=== PATIENT | male | born 1985 | race African-American/Black ===

== ENCOUNTER 2018-08-17 09:43 | Emergency (ER) | payer OTHER ==
[~2018-08-17] VITALS: Ht 190.5 cm; Wt 132.6 kg
[~2018-08-17 09:43] MED LIST: AMLO10TA PO; LISI10TA11 PO; METO25TA14 PO; RISP2TAB29 PO; SULF1TAB12 PO; TOPI50TA PO; TRAZ100T99 PO
--- NOTE | 2018-08-17 09:51 | NUR ---
PT AMBULATES TO BED 2
[2018-08-17 09:53] VITALS: BP 151/105
--- NOTE | 2018-08-17 09:58 | NUR ---
PT BIB MOTHER DUE TO FACIAL SWELLING AND PAIN X LAST NOC; pT UNDERGONE SURGERY LAST MONTH TO REMOVE KELOID AND ARTIFICIAL SKIN WAS PLACED ON PT'S FACE AT [place]; 4 DAYS AGO SAID ARTIFICIAL SKIN WAS REMOVED BY HIS PMD;DRY OPEN WOUND NOTED;NO DISCHARGES;DENIES FEVER/SOB;TIENT POSITIONED FOR COMFORT; HOB ELEVATED; BEDRAILS UP X2; BED DOWN. ER MD MADE AWARE OF PT STATUS.
[2018-08-17] MEDS ORDERED: CLINDAMYCIN 600 MG/4 ML VIAL IM ONE (10:20)
[2018-08-17] MEDS ORDERED: KETOROLAC 60 MG/2 ML VIAL IM ONE ×2 (10:20→10:40)
[2018-08-17] MEDS ORDERED: CLINDAMYCIN 600 MG/4 ML VIAL ONE (10:39)
--- NOTE | 2018-08-17 11:08 | NUR ---
Patient discharged with v/s stable. Written and verbal after care instructions given and explained. Patient alert, oriented and verbalized understanding of instructions. Ambulatory with steady gait. All questions addressed prior to discharge. ID band removed. Patient advised to follow up with PMD. Rx of LORTAB AND CLINDAMYCIN given. Patient educated on indication of medication including possible reaction and side effects. Opportunity to ask questions provided and answered.
[2018-08-17 11:09] VITALS: BP 137/87
== END 2018-08-17 11:08 | disposition home or self-care (01) ==
LOC: MED 09:43
DX: L03.221 Cellulitis of neck (principal); T78.3XXA Angioneurotic edema, initial encounter; T81.89XA Other complications of procedures, not elsewhere classified, initial encounter; G80.9 Cerebral palsy, unspecified; I10 Essential (primary) hypertension; Z79.899 Other long term (current) drug therapy; Z91.048 Other nonmedicinal substance allergy status
CPT/HCPCS: 96372; 99284; J1885; J3490

== ENCOUNTER 2019-05-14 19:22 | Emergency (ER) | payer OTHER ==
[~2019-05-14] VITALS: Ht 190.5 cm; Wt 122.5 kg
[2019-05-14 19:31] VITALS: BP 142/98
[2019-05-14] MEDS ORDERED: NACL 0.9% 1,000 ML IV ONE (20:05)
[2019-05-14] MEDS ORDERED: ONDANSETRON 4 MG/2 ML VIAL IVP ONE (20:05)
--- NOTE | 2019-05-14 20:05 | NUR ---
33 YO DEVELOPMENTALLY DISABLED M BIB MOM PRESENTS TO ED C/O N/V X 5 DAYS. PT IS VOMITING CLEAR FLUID AT BEDSIDE. DENIES PAIN AT THIS TIME. MOM DENIES DIARRHEA/CONSTIPATION OR CHANGE IN EATING HABITS. LAST BM WAS YESTERDAY AND NORMAL. DENIES FEVER. -- PT AWAKE, ALERT, CALM, COOPERATIVE. ANSWERS QUESTIONS TO ABILITY. BEHAVIOR NOT AGE APPROPRIATE. -- SKIN PINK, WARM, DRY. LARGE KELOID SCARS NOTED TO BACK, ARMS, AND NECK. BREATHING EVEN, UNLABORED. PMH-- AUTISM, CP, HTN
--- NOTE | 2019-05-14 20:40 | NUR ---
DR. KENDALL AT BEDSIDE.
[2019-05-14 21:08] VITALS: BP 135/97
--- NOTE | 2019-05-14 21:08 | NUR ---
DPatient discharged with v/s stable. Written and verbal after care instructions given and explained. Patient alert, oriented and verbalized understanding of instructions. Ambulatory with steady gait. All questions addressed prior to discharge. ID band removed. Patient advised to follow up with PMD. Rx of ZOFRAN given. Patient educated on indication of medication including possible reaction and side effects. Opportunity to ask questions provided and answered. PT W/MOTHER TO GO HOME.
== END 2019-05-14 21:08 | disposition home or self-care (01) ==
LOC: MED 19:22
DX: R11.2 Nausea with vomiting, unspecified (principal); I10 Essential (primary) hypertension; F84.0 Autistic disorder; Z98.890 Other specified postprocedural states; Z79.899 Other long term (current) drug therapy; Z88.0 Allergy status to penicillin
CPT/HCPCS: 81002; 96361; 96374; 99283; J2405; J7030

== ENCOUNTER 2023-07-21 18:45 | Inpatient (IN) | payer OTHER ==
[~2023-07-21] VITALS: Ht 190.5 cm; Wt 133.8 kg
[~2023-07-21 18:45] MED LIST changes: -LISI10TA11 PO; +LISI10TA30 PO; -RISP2TAB29 PO; +RISP2TAB75 PO; +SULF-954 PO; -SULF1TAB12 PO; +TRAZ-471 PO; -TRAZ100T99 PO
[2023-07-21 18:50] VITALS: BP 146/87; RESP 18; TEMP 98; O2SAT 99
[2023-07-21] MEDS ORDERED: MORPHINE SULFATE 4 MG/ML SYR IM ONE (21:05)
[2023-07-21] MEDS ORDERED: ONDANSETRON 4 MG/2 ML VIAL IVP ONE (23:15)
[2023-07-21] MEDS ORDERED: MORPHINE SULFATE 4 MG/ML SYR IVP ONE (23:15)
[2023-07-21 23:55] LABS: BASOPHILS % (AUTO) 0.5 % (0.0-2.0); EOSINOPHILS % (AUTO) 0.1 % (0.0-4.0); HEMATOCRIT 39.8 % (36-52); HEMOGLOBIN 13.6 g/dL (12.0-18.0); LYMPHOCYTES # (AUTO) 1.2 K/uL (2.0-11.5); LYMPHOCYTES % (AUTO) 11.4 % (20.5-51.1); MEAN CORPUSCULAR HEMOGLOBIN 28 pg (27-31); MEAN CORPUSCULAR HGB CONC 34 g/dL (33-37); MEAN CORPUSCULAR VOLUME 81.2 fL (80-94); MONOCYTES # (AUTO) 0.7 K/uL (0.8-1.0); MONOCYTES % (AUTO) 6.4 % (1.7-9.3); NEUTROPHILS # (AUTO) 8.9 K/uL (1.8-7.7); NEUTROPHILS % (AUTO) 81.6 % (42.2-75.2); PLATELET COUNT (AUTO) 281 K/uL (140-450); WHITE BLOOD COUNT (AUTO) 10.8 K/uL (4.8-10.8)
[2023-07-22 00:09] LABS: ALBUMIN 3.9 g/dL (3.4-5.0); ANION GAP 17.3 (8-16); CALCIUM 9.3 mg/dL (8.5-10.1); CARBON DIOXIDE 20.2 mmol/L (21-32); POTASSIUM 4.5 mmol/L (3.5-5.1); TOTAL BILIRUBIN 0.8 mg/dL (0.0-1.0); TOTAL PROTEIN, SERUM 8.1 g/dL (6.4-8.2)
[2023-07-22 00:22] LABS: INR 1.08 (0.8-1.2); PARTIAL THROMBOPLASTIN TIME 27.6 secs (22-35.6); PROTHROMBIN TIME 11.3 secs (10.8-13.4)
[2023-07-22] MEDS ORDERED: CLON0.1T16 PO (01:36)
[2023-07-22] MEDS ORDERED: MAG SULF 2000 MG/WATER PREMIX 50 ML IV PRN (02:05)
[2023-07-22] MEDS ORDERED: ONDANSETRON 4 MG/2 ML VIAL IVP PRN (02:05)
[2023-07-22] MEDS ORDERED: HYDROcodone/APAP 5/325 MG 1 TAB TAB PO PRN (02:05)
[2023-07-22] MEDS ORDERED: ACETAMINOPHEN 325 MG TAB PO PRN (02:05)
[2023-07-22] MEDS ORDERED: POTASSIUM CHLORIDE 10 MEQ TABER PO PRN (02:05)
[2023-07-22] MEDS ORDERED: MAGNESIUM OXIDE 400 MG TAB PO PRN (02:05)
[2023-07-22] MEDS ORDERED: KCL 20 MEQ IN 100 mL PREMIX 200 ML IV PRN (02:05)
[2023-07-22 03:01] VITALS: BP 98/67; PULSE 88; RESP 18; TEMP 97.1; O2SAT 96
[2023-07-22 08:00] VITALS: BP 132/90; PULSE 105; RESP 18; TEMP 98.8; O2SAT 95
[2023-07-22] MEDS: MORPHINE SULFATE 4 MG/ML SYR IVP PRN ×2 (09:02→14:12)
[2023-07-22 18:00] VITALS: BP 140/94; PULSE 109; RESP 18; TEMP 98.8
[2023-07-22 20:00] VITALS: BP 148/96; PULSE 108; RESP 20; TEMP 97.5; O2SAT 97
[2023-07-22] MEDS: traZODone 50 MG TAB PO SCH (20:32)
[2023-07-22] MEDS: CLONIDINE HYDROCHLORIDE 0.1 MG TAB PO SCH (20:37)
[2023-07-22] MEDS ORDERED: CLONIDINE HYDROCHLORIDE 0.1 MG TAB PO SCH (21:00)
[2023-07-23 04:00] VITALS: BP 140/87; PULSE 105; RESP 20; TEMP 97.9; O2SAT 99
[2023-07-23 06:49] LABS: BASOPHILS % (AUTO) 0.4 % (0.0-2.0); EOSINOPHILS % (AUTO) 0.1 % (0.0-4.0); HEMATOCRIT 36.7 % (36-52); HEMOGLOBIN 12.7 g/dL (12.0-18.0); LYMPHOCYTES # (AUTO) 1.1 K/uL (2.0-11.5); LYMPHOCYTES % (AUTO) 12.3 % (20.5-51.1); MEAN CORPUSCULAR HEMOGLOBIN 28 pg (27-31); MEAN CORPUSCULAR HGB CONC 35 g/dL (33-37); MEAN CORPUSCULAR VOLUME 81.2 fL (80-94); MONOCYTES # (AUTO) 0.6 K/uL (0.8-1.0); MONOCYTES % (AUTO) 6.7 % (1.7-9.3); NEUTROPHILS % (AUTO) 80.5 % (42.2-75.2); PLATELET COUNT (AUTO) 254 K/uL (140-450); RED BLOOD CELL COUNT(AUTO) 4.52 MIL/uL (4.20-6.10); RED CELL DISTRIBUTION WIDTH 13.9 % (11.6-13.7); WHITE BLOOD COUNT (AUTO) 8.7 K/uL (4.8-10.8)
[2023-07-23 06:52] LABS: ANION GAP 16.6 (8-16); CALCIUM 9.7 mg/dL (8.5-10.1); CARBON DIOXIDE 22.6 mmol/L (21-32); CREATININE 0.7 mg/dL (0.6-1.3); MAGNESIUM 2.2 mg/dL (1.8-2.4); PHOSPHORUS 3.1 mg/dL (2.5-4.9); POTASSIUM 4.2 mmol/L (3.5-5.1)
[2023-07-23 08:00] VITALS: PULSE 96; RESP 18; O2SAT 96
[2023-07-23] MEDS: METOPROLOL 25 MG TAB PO SCH (09:59)
[2023-07-23] MEDS: MORPHINE SULFATE 4 MG/ML SYR IVP PRN ×2 (09:59→18:54)
[2023-07-23] MEDS: amLODIPine 5 MG TAB PO SCH (10:00)
[2023-07-23] MEDS: lisinopriL 10 MG TAB PO SCH (10:00)
[2023-07-23 12:00] VITALS: BP 141/91; PULSE 96; RESP 18; TEMP 97.3; O2SAT 96
[2023-07-23] MEDS: HYDRAGUARD CREAM TP SCH (13:56)
[2023-07-23] MEDS ORDERED: DOCUSATE SODIUM 100 MG GELCAP PO SCH (17:01)
[2023-07-23 20:00] VITALS: BP 134/92; PULSE 129; RESP 18; TEMP 98; O2SAT 95
[2023-07-23] MEDS: traZODone 50 MG TAB PO SCH (20:00)
[2023-07-23] MEDS: CLONIDINE HYDROCHLORIDE 0.1 MG TAB PO SCH (20:44)
[2023-07-24] MEDS: HYDRAGUARD CREAM TP SCH ×2 (00:54→13:06)
[2023-07-24 04:00] VITALS: BP 129/90; PULSE 122; RESP 18; TEMP 98.5; O2SAT 97
[2023-07-24 06:45] LABS: BASOPHILS % (AUTO) 0.3 % (0.0-2.0); EOSINOPHILS % (AUTO) 0.5 % (0.0-4.0); HEMATOCRIT 35.5 % (36-52); HEMOGLOBIN 12.2 g/dL (12.0-18.0); LYMPHOCYTES # (AUTO) 1.6 K/uL (2.0-11.5); LYMPHOCYTES % (AUTO) 19.5 % (20.5-51.1); MEAN CORPUSCULAR HEMOGLOBIN 28 pg (27-31); MEAN CORPUSCULAR HGB CONC 34 g/dL (33-37); MEAN CORPUSCULAR VOLUME 81.2 fL (80-94); MONOCYTES # (AUTO) 0.9 K/uL (0.8-1.0); MONOCYTES % (AUTO) 10.7 % (1.7-9.3); NEUTROPHILS # (AUTO) 5.7 K/uL (1.8-7.7); PLATELET COUNT (AUTO) 274 K/uL (140-450); RED BLOOD CELL COUNT(AUTO) 4.37 MIL/uL (4.20-6.10); RED CELL DISTRIBUTION WIDTH 13.9 % (11.6-13.7); WHITE BLOOD COUNT (AUTO) 8.3 K/uL (4.8-10.8)
[2023-07-24 06:57] LABS: MAGNESIUM 2.1 mg/dL (1.8-2.4); PHOSPHORUS 3.5 mg/dL (2.5-4.9)
[2023-07-24 06:58] LABS: ANION GAP 12.7 (8-16); CALCIUM 8.8 mg/dL (8.5-10.1); CARBON DIOXIDE 26.6 mmol/L (21-32); CREATININE 0.6 mg/dL (0.6-1.3); POTASSIUM 4.3 mmol/L (3.5-5.1)
[2023-07-24 08:00] VITALS: BP 123/83; PULSE 104; RESP 18; TEMP 96.6; O2SAT 97
[2023-07-24] MEDS: DOCUSATE SODIUM 100 MG GELCAP PO SCH (09:07)
[2023-07-24] MEDS: METOPROLOL 25 MG TAB PO SCH (09:07)
[2023-07-24] MEDS: lisinopriL 10 MG TAB PO SCH (09:08)
[2023-07-24] MEDS: amLODIPine 5 MG TAB PO SCH (09:08)
[2023-07-24] MEDS: MORPHINE SULFATE 4 MG/ML SYR IVP PRN (09:36)
[2023-07-24 16:00] VITALS: BP 120/70; PULSE 104; RESP 18; TEMP 97.4; O2SAT 94
[2023-07-24 20:00] VITALS: BP 146/86; PULSE 129; RESP 18; TEMP 98; O2SAT 95
[2023-07-24] MEDS: traZODone 50 MG TAB PO SCH (21:00)
[2023-07-24] MEDS: CLONIDINE HYDROCHLORIDE 0.1 MG TAB PO SCH (21:08)
[2023-07-25 00:48] VITALS: PULSE 129; RESP 18; O2SAT 97
[2023-07-25] MEDS: HYDRAGUARD CREAM TP SCH ×2 (01:48→13:10)
[2023-07-25 07:04] LABS: BASOPHILS # (AUTO) 0.1 K/uL (0.00-0.22); EOSINOPHILS # (AUTO) 0.1 K/uL (0-0.4); EOSINOPHILS % (AUTO) 0.8 % (0.0-4.0); HEMATOCRIT 35.8 % (36-52); LYMPHOCYTES # (AUTO) 1.4 K/uL (2.0-11.5); LYMPHOCYTES % (AUTO) 18.2 % (20.5-51.1); MEAN CORPUSCULAR HEMOGLOBIN 27 pg (27-31); MEAN CORPUSCULAR HGB CONC 33 g/dL (33-37); MEAN CORPUSCULAR VOLUME 81.9 fL (80-94); MONOCYTES # (AUTO) 0.6 K/uL (0.8-1.0); MONOCYTES % (AUTO) 7.7 % (1.7-9.3); NEUTROPHILS # (AUTO) 5.7 K/uL (1.8-7.7); NEUTROPHILS % (AUTO) 72.3 % (42.2-75.2); PLATELET COUNT (AUTO) 296 K/uL (140-450); RED BLOOD CELL COUNT(AUTO) 4.37 MIL/uL (4.20-6.10); RED CELL DISTRIBUTION WIDTH 13.7 % (11.6-13.7); WHITE BLOOD COUNT (AUTO) 7.9 K/uL (4.8-10.8)
[2023-07-25 07:31] LABS: ANION GAP 14.9 (8-16); CALCIUM 9.3 mg/dL (8.5-10.1); CARBON DIOXIDE 23.9 mmol/L (21-32); CREATININE 0.7 mg/dL (0.6-1.3); POTASSIUM 3.8 mmol/L (3.5-5.1)
[2023-07-25 07:35] LABS: MAGNESIUM 2.1 mg/dL (1.8-2.4); PHOSPHORUS 3.1 mg/dL (2.5-4.9)
[2023-07-25 08:00] VITALS: BP 137/85; PULSE 98; RESP 18; TEMP 97; O2SAT 96
[2023-07-25] MEDS: amLODIPine 5 MG TAB PO SCH (08:34)
[2023-07-25] MEDS: lisinopriL 10 MG TAB PO SCH (08:34)
[2023-07-25] MEDS: DOCUSATE SODIUM 100 MG GELCAP PO SCH (08:35)
[2023-07-25] MEDS: METOPROLOL 25 MG TAB PO SCH (08:35)
[2023-07-25] MEDS ORDERED: LACTULOSE 20 GM/30 ML UDC PO SCH (12:58)
[2023-07-25 16:00] VITALS: BP 134/82; PULSE 103; RESP 18; TEMP 97.4; O2SAT 97
[2023-07-25] MEDS ORDERED: LACT10SO11 PO (16:14)
[2023-07-25] MEDS ORDERED: ACET-1182 PO (16:14)
[2023-07-25] MEDS ORDERED: Hydraguard TP (16:14)
[2023-07-25] MEDS ORDERED: ACET-9525 PO ×2 (16:14→17:17)
[2023-07-25] MEDS ORDERED: DOCU-299 PO (16:14)
== END 2023-07-25 19:05 | disposition home health service (06) | DRG 342 ==
LOC: MED 18:45 → MTU 07-22 02:06 → OBSVTOIN 07-22 02:06 → MTU 07-22 02:41
PROVIDERS: ADMIT Hospitalist; ATTEND Hospitalist
DX: S42.291A Other displaced fracture of upper end of right humerus, initial encounter for closed fracture (principal); E87.1 Hypo-osmolality and hyponatremia; G80.9 Cerebral palsy, unspecified; L91.0 Hypertrophic scar; M41.9 Scoliosis, unspecified; M48.061 Spinal stenosis, lumbar region without neurogenic claudication; I10 Essential (primary) hypertension; W01.0XXA Fall on same level from slipping, tripping and stumbling without subsequent striking against object, initial encounter; Z88.0 Allergy status to penicillin; Y93.89 Activity, other specified; Y92.89 Other specified places as the place of occurrence of the external cause; Y99.8 Other external cause status
CPT/HCPCS: 36415; 72131; 72192; 73030; 73060; 73110; 73200; 73660; 80048; 80053; 83735; 84100; 85025; 85610; 85730; 87081; 96372; 96374; 96375; 97110; 97112; 97530; 99285; J1644; J2270; J2405